=== PATIENT | female | born 1990 | race Caucasian/White ===

== ENCOUNTER 2020-08-08 05:51 | Inpatient (IN) ==
[2020-08-08] MEDS ORDERED: LACTATED RINGER'S 1,000 ML IV PRN (06:52)
[2020-08-08] MEDS ORDERED: OXYTOCIN 30 UNITS/500 ML BAG IV PRN ×2 (06:52→10:52)
[2020-08-08 07:19] LABS: Hematocrit (blood only) 36.3 % (37-47); Hemoglobin 12.2 g/dL (12.0-16.0); Mean Corpuscular Hemoglobin 30.7 pg (25-34); Mean Corpuscular Hgb Conc 33.6 g/dL (32-36); Mean Corpuscular Volume 91.4 fL (80-100); Mean Platelet Volume 11.9 fL (7.4-10.4); Platelet Count 231 K/uL (130-400); RDW Coefficient of Variation 13.7 % (11.5-14.5); RDW Standard Deviation 45.7 fL (36.4-46.3); Red Blood Count 3.97 M/uL (4.2-5.4); White Blood Count 14.64 K/uL (4.8-10.8)
--- NOTE | 2020-08-08 08:38 | Progress Note ---
Date of Service August 08, 2020 Assessment & Plan Admission and Anticipated Discharge Date Admission Date: August 08, 2020 Subjective Met pt and spouse Doing well FHR; CAT1 Ctx; 1-2min Reviewed PNC declined analgesia VE; 10;100; 0 station bedside sono; Vt pt wishes to start pushing Results & Data ([facility]) Vital Signs (Past 12 Hours) Vital Signs Temp Pulse Resp BP 08/08/20 06:18 36.7 C 61 18 111/66 08/08/20 06:16 61 111/66
--- NOTE | 2020-08-08 08:57 | Obstetrical Progress Note ---
Date of Service August 08, 2020 Assessment & Plan (1) delivery delivered: c/sec day #2 pt doing well No complaints d/c home with instructions Subjective Ambulation: ambulating normally Voiding: no voiding problems Passing Gas:: Yes Diet Tolerance:: clear liquids Lochia:: Small Feeding Type:: breast feeding Review of Systems All systems reviewed & are unremarkable except as noted in HPI & below Physical Exam Constitutional WD/WN, vitals as above well developed and well nourished Eyes PERRL, conjunctivae normal, anicteric sclerae ENMT external ear and nose normal, oropharynx normal Neck trachea midline, no thyromegaly Respiratory normal respiratory effort, lungs clear to auscultation Cardiovascular RRR, no murmur, no edema Chest (Breasts) normal inspection/palpation of breasts Gastrointestinal (Abdomen) normal bowel sounds, soft, nontender, no hepatosplenomegaly Musculoskeletal no cyanosis or clubbing, extremities motor strength 5/5 Skin no rashes, warm and dry + incision (Clean,dry and intact) Neurologic patellar DTR's 2+ bilat, sensation intact Psychiatric A+Ox3, euthymic affect Genitourinary normal external appearance Lymphatic no cervical or axillary lymphadenopathy Results & Data ([facility]) Vital Signs (Past 12 Hours) Vital Signs Temp Pulse Resp BP 08/08/20 06:18 36.7 C 61 18 111/66 08/08/20 06:16 61 111/66
[2020-08-08] MEDS ORDERED: LIDOCAINE 1% LOCAL 20 ML VIAL ONE ×2 (09:52→10:08)
[2020-08-08] MEDS ORDERED: METHYLERGONOVINE MALEATE 0.2 MG/ML AMP ONE (09:53)
[2020-08-08] MEDS ORDERED: miSOPROStoL 100 MCG TAB ONE (10:34)
[2020-08-08] MEDS ORDERED: bisacodyL 10 MG SUPP PR PRN (10:52)
[2020-08-08] MEDS ORDERED: BENZOCAINE 20% AER SPR 82.5 GM CAN EXT PRN (10:52)
[2020-08-08] MEDS ORDERED: DIPHTHERIA/TETANUS/PERTUSSIS 0.5 ML SYR/VIAL IM ONE (10:52)
[2020-08-08] MEDS ORDERED: SUPERCREAM 0.870% 15 GM JAR EXT PRN (10:52)
[2020-08-08] MEDS ORDERED: HYDROCORTISONE ACETATE 25 MG SUPP PR PRN (10:52)
[2020-08-08] MEDS ORDERED: miSOPROStoL 100 MCG TAB PR ONE (10:52)
[2020-08-08] MEDS ORDERED: ACETAMINOPHEN 325 MG TAB PO PRN (10:52)
[2020-08-08] MEDS ORDERED: METHYLERGONOVINE MALEATE 0.2 MG/ML AMP IM ONE (10:52)
[2020-08-08] MEDS ORDERED: LACTATED RINGER'S 1,000 ML IV SCH (11:00)
--- NOTE | 2020-08-08 11:39 | Delivery Summary ---
DATE: 08/08/2020 DELIVERY NOTE: The patient delivered a live in occiput anterior with right hand compound presentation. There was no nuchal cord. was delivered and placed on mother's abdomen. Delayed cord clamping was performed. Cord blood was obtained. Placenta was spontaneously delivered. Inspection of the perineum showed bilateral posterior lacerations. This was repaired with 2-0 Vicryl. There was good hemostasis post-repair. Estimated blood loss is 150 mL. Rectal exam post-repair showed good sphincter tone. No sutures are palpated in the rectum. All instruments are removed from the vagina including sponges, retractors and accounted for x2. Baby and mother are doing well in recovery. Job ID: [id number] [facility]
[2020-08-08] MEDS: IBUPROFEN 600 MG TAB PO PRN (12:38)
[2020-08-08] MEDS: DOCUSATE SODIUM 100 MG CAP PO SCH (21:08)
[2020-08-09 07:00] LABS: Hematocrit (blood only) 34.3 % (37-47); Hemoglobin 11.6 g/dL (12.0-16.0); Mean Corpuscular Hemoglobin 30.9 pg (25-34); Mean Corpuscular Hgb Conc 33.8 g/dL (32-36); Mean Corpuscular Volume 91.5 fL (80-100); Mean Platelet Volume 11.8 fL (7.4-10.4); Platelet Count 194 K/uL (130-400); RDW Coefficient of Variation 13.8 % (11.5-14.5); RDW Standard Deviation 45.8 fL (36.4-46.3); Red Blood Count 3.75 M/uL (4.2-5.4); White Blood Count 17.08 K/uL (4.8-10.8)
[2020-08-09] MEDS: PRENATAL VITAMIN 1 TAB PO SCH (08:30)
[2020-08-09] MEDS: DOCUSATE SODIUM 100 MG CAP PO SCH ×2 (08:30→19:38)
[2020-08-09] MEDS: IBUPROFEN 600 MG TAB PO PRN ×2 (08:31→17:55)
--- NOTE | 2020-08-09 09:58 | Obstetrical Progress Note ---
Date of Service August 09, 2020 PPD#1 doing well passing gas tolerating diet out of bed breast feeding well Physical Exam Constitutional WD/WN, vitals as above comfortable fundus firm below U abdomen soft and non-tender no edema neg Ori's for d/c in AM Results & Data ([facility]) Vital Signs (Past 12 Hours) Vital Signs Temp Pulse Resp BP Pulse Ox 08/09/20 07:39 36.6 C 68 18 101/66 08/09/20 04:22 36.7 C 68 16 105/66 98 08/08/20 23:45 16 Laboratory Results Laboratory Results - last 72 hr 08/08/20 08/08/20 08/08/20 07:00 07:00 07:04 WBC 14.64 H RBC 3.97 L Hgb 12.2 Hct 36.3 L MCV 91.4 MCH 30.7 MCHC 33.6 RDW Std Deviation 45.7 RDW Coeff of Phong 13.7 Plt Count 231 MPV 11.9 H COVID-19 Eval Order Covid19 IDNow atMMTC SARS-CoV-2, RNA, NAAT NEGATIVE 08/09/20 06:39 WBC 17.08 H RBC 3.75 L Hgb 11.6 L Hct 34.3 L MCV 91.5 MCH 30.9 MCHC 33.8 RDW Std Deviation 45.8 RDW Coeff of Phong 13.8 Plt Count 194 MPV 11.8 H COVID-19 Eval Order SARS-CoV-2, RNA, NAAT
[2020-08-09] MEDS ORDERED: bisacodyL 5 MG TABEC PO SCH (20:00)
[2020-08-10 06:06] LABS: Hematocrit (blood only) 33.4 % (37-47)
--- NOTE | 2020-08-10 08:07 | Obstetrical Progress Note ---
Date of Service August 10, 2020 Subjective Ambulation: ambulating normally Voiding: no voiding problems Passing Gas:: Yes Diet Tolerance:: regular diet Lochia:: Small Feeding Type:: breast feeding Physical Exam Constitutional WD/WN, vitals as above well developed and comfortable doing well fundus firm non-tender neg Ori's for d/c Results & Data ([facility]) Vital Signs (Past 12 Hours) Vital Signs Temp Pulse Resp BP Pulse Ox 08/09/20 22:50 36.4 C L 68 16 98/61 L 98
[2020-08-10] MEDS: DOCUSATE SODIUM 100 MG CAP PO SCH (09:19)
[2020-08-10] MEDS: PRENATAL VITAMIN 1 TAB PO SCH (09:19)
--- NOTE | 2020-09-04 08:59 | Coding Query ---
CODING QUERY To promote full compliance with coding requirements relating to patient care, provider participation is requested in all cases of preparing box tender uncertainty. Please assist us with the question(s) below: Coding Question(s): The Delivery Summary documents, "Inspection of the perineum showed bilateral posterior lacerations. This was repaired with 2-0 Vicryl". Please specify below regarding the perineal lacerations. ( ) first degree ( x ) second degree ( ) third degree ( ) fourth degree ( ) Other: Please Specify Physician's Response(s): Thank you Mandie Kinney Principal Diagnosis: "that condition established after study, to be chiefly responsible for occasioning the admission of the patient to the hospital for care." Co-Existing Principal Diagnosis: "when two or more diagnoses equally meet the criteria for principal diagnosis as determined by the circumstances of admission, diagnostic work up, and/or therapy provided, and the Alphabetic Index, Tabular List, or another coding guideline does not provide sequencing direction, any one of the diagnoses may be sequenced first." "When the physician has documented what appears to be a current diagnosis in the body of the record, but has not included the diagnosis in the final diagnostic statement, the physician should be asked whether the diagnosis should be added." ([facility] 2 QTR90. p3-4) ISHA
== END 2020-08-10 12:08 | disposition home or self-care (01) | DRG 807 ==
LOC: 4S1 05:51 → 4S2 16:00

== ENCOUNTER 2022-07-22 08:17 | Inpatient (IN) ==
[2022-07-23] MEDS ORDERED: OXYTOCIN 30 UNITS/500 ML BAG IV PRN ×2 (06:40→09:50)
[2022-07-23] MEDS ORDERED: LIDOCAINE 1% LOCAL 20 ML VIAL INFIL PRN (06:40)
[2022-07-23] MEDS ORDERED: LACTATED RINGER'S 1,000 ML IV PRN (06:40)
[2022-07-23 07:25] LABS: Hematocrit (blood only) 34.8 % (37.0-47.0); Hemoglobin 12.1 g/dl (12.0-16.0); Mean Corpuscular Hemoglobin 31.4 pg (25.0-34.0); Mean Corpuscular Hgb Conc 34.8 g/dL (32.0-36.0); Mean Corpuscular Volume 90.4 fL (80.0-100.0); Mean Platelet Volume 11.9 fL (9.4-12.4); Platelet Count 181 K/uL (130-400); RDW Coefficient of Variation 13.8 % (11.5-14.5); RDW Standard Deviation 45.8 fL (36.4-46.3); Red Blood Count 3.85 M/uL (4.20-5.40)
--- NOTE | 2022-07-23 09:29 | Obstetrical Progress Note ---
Date of Service July 23, 2022 Assessment & Plan (1) : Plan: Postdates induction FHR: CAT1 VE: 5/100/0 AROM with Amnio hook and FSE Bedside sono : VT Anticipate VD Admission and Anticipated Discharge Date Admission Date: July 23, 2022 Results & Data Vital Signs (Past 12 Hours) Vital Signs Temp Pulse Resp BP 07/23/22 09:23 66 124/79 07/23/22 06:17 59 L 109/74 07/23/22 06:23 36.6 C 59 L 18 109/74
[2022-07-23] MEDS ORDERED: METHYLERGONOVINE MALEATE 0.2 MG/ML AMP ONE (09:44)
[2022-07-23] MEDS ORDERED: METHYLERGONOVINE MALEATE 0.2 MG/ML AMP IM ONE (09:50)
[2022-07-23] MEDS ORDERED: DIPHTHERIA/TETANUS/PERTUSSIS Vaccine (Tdap, Age 7+yrs) 0.5mL SYR/VL IM ONE (09:50)
[2022-07-23] MEDS ORDERED: BENZOCAINE 20% AER SPR 82.5 GM CAN EXT PRN (09:50)
[2022-07-23] MEDS ORDERED: ACETAMINOPHEN 325 MG TAB PO PRN (09:50)
[2022-07-23] MEDS ORDERED: bisacodyL 10 MG SUPP PR PRN (09:50)
[2022-07-23] MEDS ORDERED: HYDROCORTISONE ACETATE 25 MG SUPP PR PRN (09:50)
--- NOTE | 2022-07-23 10:25 | Delivery Summary ---
DELIVERY NOTE: The patient delivered a live infant in right occiput anterior presentation. There wa s nuchal cord, which was easily reduced. Infant was delivered and placed on mother's abdomen. Delay ed cord clamp was performed. Cord blood was obtained. Placenta was spontaneously delivered. Placen ta appeared to be meconium stained. Placenta is therefore sent to Pathology for pathological analysi s. Inspection of the perineum shows no laceration or tears. Estimated blood loss was 450 mL. All instruments were removed from the vagina and accounted for x2 in cluding sponges and retractors. Baby and mother are doing well in recovery. The 's weight and Apgars will be in the pediatric record. Job ID: [id number]
[2022-07-23] MEDS: IBUPROFEN 600 MG TAB PO PRN (10:31)
[2022-07-23] MEDS: DOCUSATE SODIUM 100 MG CAP PO SCH (20:10)
[2022-07-24 06:45] LABS: Hematocrit (blood only) 32.4 % (37.0-47.0); Hemoglobin 10.9 g/dl (12.0-16.0); Mean Corpuscular Hemoglobin 30.6 pg (25.0-34.0); Mean Corpuscular Hgb Conc 33.6 g/dL (32.0-36.0); Mean Platelet Volume 12.3 fL (9.4-12.4); Platelet Count 194 K/uL (130-400); RDW Coefficient of Variation 13.7 % (11.5-14.5); RDW Standard Deviation 45.9 fL (36.4-46.3); Red Blood Count 3.56 M/uL (4.20-5.40)
[2022-07-24] MEDS: IBUPROFEN 600 MG TAB PO PRN (07:51)
[2022-07-24] MEDS: DOCUSATE SODIUM 100 MG CAP PO SCH (07:51)
[2022-07-24] MEDS ORDERED: PRENATAL VITAMIN 1 TAB PO SCH (08:00)
--- NOTE | 2022-07-24 08:18 | Obstetrical Progress Note ---
Date of Service July 24, 2022 Assessment & Plan Admission and Anticipated Discharge Date Admission Date: July 23, 2022 Subjective abdomen soft and non tender ambulating well no calf tenderness vaginal bleeding scant hgb 10.9 Results & Data Vital Signs (Past 12 Hours) Vital Signs Temp Pulse Resp BP Pulse Ox O2 Del Method 07/24/22 03:39 36.8 C 73 20 114/69 94 Room Air 07/23/22 23:22 36.8 C 70 19 107/66 98 Room Air
[2022-07-24] MEDS ORDERED: bisacodyL 5 MG TABEC PO SCH (20:00)
--- NOTE | 2022-07-27 08:01 | Coding Query ---
CODING QUERY To promote full compliance with coding requirements relating to patient care, provider participation is requested in all cases of hasher operator uncertainty. Please assist us with the question(s) below: Coding Question(s): Please confirm the weeks of gestation at the time of admission. Physician's Response(s): 40 weeks 5days Thank you Ayla Hamilton Principal Diagnosis: "that condition established after study, to be chiefly responsible for occasioning the admission of the patient to the hospital for care." Co-Existing Principal Diagnosis: "when two or more diagnoses equally meet the criteria for principal diagnosis as determined by the circumstances of admission, diagnostic work up, and/or therapy provided, and the Alphabetic Index, Tabular List, or another coding guideline does not provide sequencing direction, any one of the diagnoses may be sequenced first." "When the physician has documented what appears to be a current diagnosis in the body of the record, but has not included the diagnosis in the final diagnostic statement, the physician should be asked whether the diagnosis should be added." ([facility] 2 QTR90. p3-4) ISHA
== END 2022-07-24 12:27 | disposition home or self-care (01) | DRG 807 ==
LOC: 4S1 07-23 06:01 → 4E2 07-23 13:47